=== PATIENT | female | born 1995 | race African-American/Black ===

== ENCOUNTER 2017-09-29 23:16 | Emergency (ER) | payer OTHER ==
[2017-09-30] MEDS ORDERED: Ketorolac Tromethamine 60 MG/2 ML VIAL ONE (00:08)
[2017-09-30] MEDS ORDERED: Ondansetron ODT 4 MG TAB ONE (00:08)
[2017-09-30] MEDS ORDERED: Metoclopramide HCl 10 MG TAB PO SCH (00:30)
== END 2017-09-30 01:32 | disposition home or self-care (01) ==
LOC: ERS 23:16
DX: R51 Headache (principal); E66.9 Obesity, unspecified
CPT/HCPCS: 96372; J1885; Q0162

== ENCOUNTER 2017-11-27 16:01 | Emergency (ER) | payer OTHER | END 2017-11-27 16:58 | disposition home or self-care (01) | LOC: ERS 16:01 | DX: B34.9 Viral infection, unspecified (principal); E66.9 Obesity, unspecified | CPT/HCPCS: 87081; 87430; 99283 ==

== ENCOUNTER 2018-05-23 13:33 | Emergency (ER) | payer OTHER ==
[2018-05-23 16:32] LABS: Bilirubin Negative (Negative); Blood, Urine Negative (Negative); Clarity CLEAR (Clear); Glucose, Urine (Dipstick) Negative (Negative); Leukocyte Negative (Negative); Nitrite Negative (Negative); Protein, Urine (Dipstick) Negative (Neg-Trace); pH, Urine 6.5 (5.0-9.0)
[2018-05-23 16:36] LABS: Pregnancy Test - Urine (BHCG) Negative (Negative); Pregu Control Background? CLEAR/WHITE (CLR/WHITE); Pregu Control Bar Appear? YES (CONTROL BAR)
--- NOTE | 2018-05-23 17:12 | RAD ---
CHEST TWO VIEWS: 05/23/18 HISTORY: Chest pain. FINDINGS: No comparison. The cardiac silhouette is magnified by projection. Pulmonary vasculature unremarkable. Mediastinum is midline. No lobar consolidation or evidence of pneumothorax. engine monitor leads overlie the chest . IMPRESSION: No active cardiopulmonary abnormalities are demonstrated. POS: [facility]
--- NOTE | 2018-05-24 15:15 | EKG ---
Test Reason : Blood Pressure : / mmHG Vent. Rate : 053 BPM Atrial Rate : 053 BPM P-R Int : 144 ms QRS Dur : 074 ms QT Int : 438 ms P-R-T Axes : 035 004 000 degrees QTc Int : [address] elevation, consider early repolarization, pericarditis, or injury Abnormal ECG Confirmed by MICAELA GUEVARA DO ([id number]), story editor JORGE MAGALLON ([id number]) on 05/24/2018 3:14:39 PM Referred By: Confirmed By:MICAELA GUEVARA DO
--- NOTE | 2018-05-25 13:54 | EKG ---
Test Reason : Blood Pressure : / mmHG Vent. Rate : 056 BPM Atrial Rate : 056 BPM P-R Int : 144 ms QRS Dur : 072 ms QT Int : 442 ms P-R-T Axes : 033 008 000 degrees QTc Int : 426 ms Sinus bradycardia Otherwise normal ECG Reconfirmed by MICAELA GUEVARA DO ([id number]), editor magazine JORGE MAGALLON ([id number]) on 05/25/2018 1:54:32 PM Referred By: Confirmed By:MICAELA GUEVARA DO
== END 2018-05-23 17:56 | disposition home or self-care (01) ==
LOC: ERS 13:33
DX: R07.89 Other chest pain (principal); E66.9 Obesity, unspecified
CPT/HCPCS: 71046; 81003; 81025; 93005

== ENCOUNTER 2018-07-06 12:39 | Emergency (ER) | payer OTHER ==
[2018-07-06] MEDS ORDERED: Dexamethasone 4 MG TAB ONE (13:01)
== END 2018-07-06 13:07 | disposition home or self-care (01) ==
LOC: ERS 12:39
DX: L23.5 Allergic contact dermatitis due to other chemical products (principal)
CPT/HCPCS: 99282; J8540

== ENCOUNTER 2019-01-29 19:08 | Emergency (ER) | payer OTHER | END 2019-01-29 20:11 | disposition left against medical advice (07) | LOC: ERS 19:08 | DX: Z53.21 Procedure and treatment not carried out due to patient leaving prior to being seen by health care provider (principal) ==

== ENCOUNTER 2019-01-30 01:11 | Emergency (ER) | payer OTHER ==
[2019-01-30 01:41] LABS: Bilirubin Negative (Negative); Blood, Urine Negative (Negative); Clarity CLEAR (Clear); Glucose, Urine (Dipstick) Negative (Negative); Leukocyte Negative (Negative); Nitrite Negative (Negative); Pregnancy Test - Urine (BHCG) POSITIVE (Negative); Pregu Control Background? CLEAR/WHITE (CLR/WHITE); Pregu Control Bar Appear? YES (CONTROL BAR); Protein, Urine (Dipstick) Negative (Neg-Trace); Specific Gravity 1.022 (1.002-1.036); Specific Gravity, Urine 1.022 (1.002-1.036)
[2019-01-30 02:23] LABS: #Basophils 0.1 thou/uL (0.0-0.2); #Eosinphils 0.2 thou/uL (0.0-0.7); #Lymphocytes 3.9 thou/uL (1.20-3.40); #Monocytes 0.9 thou/uL (0.11-0.59); #Neutrophils 7.9 thou/uL (1.40-6.50); %Basophils 0.8 % (0.0-1.0); %Eosinophils 1.2 % (0.0-10.0); %Monocytes 7.1 % (0.0-10.0); %Neutrophils 60.9 % (42.0-75.0); Hemoglobin 11.4 g/dL (12.0-16.0); Mean Corpuscular Volume 84.6 fL (78.0-98.0); Mean Platelet Volume 6.8 fL (7.4-10.4); Platelet Count 397 thou/uL (130-400); RBC Distribution Width 14.1 % (11.5-14.5); Red Blood Cell (RBC) Count 4.23 mill/uL (4.20-5.40)
[2019-01-30 02:44] LABS: ALT (SGPT) 11 U/L (8-55); AST (SGOT) 14 U/L (5-34); Albumin 3.6 g/dL (3.5-5.0); Alkaline Phosphatase 76 U/L (40-150); Anion Gap 10 mmol/L (10-20); BUN (Urea Nitrogen) 14 mg/dL (7.0-18.7); Bilirubin, Total 0.3 mg/dL (0.2-1.2); Calc. Creatinine Clearance 0 mL/min (70-130); Calcium 9.2 mg/dL (7.8-10.44); Carbon Dioxide 23 mmol/L (22-29); Chloride 108 mmol/L (98-107); Estimated GFR-MDRD Greater than 90; Globulin 3.3 g/dL (2.4-3.5); Glucose 93 mg/dL (70-105); Potassium 3.8 mmol/L (3.5-5.1); Protein, Total 6.9 g/dL (6.0-8.3); Sodium 137 mmol/L (136-145)
== END 2019-01-30 03:40 | disposition home or self-care (01) ==
LOC: ERS 01:11
DX: O21.9 Vomiting of pregnancy, unspecified (principal)
CPT/HCPCS: 36415; 80053; 81003; 81025; 85025; 99284

== ENCOUNTER 2019-07-08 21:41 | Day surgery (SDC) | payer OTHER ==
[2019-07-08] MEDS ORDERED: hydrALAZINE 20 MG/ML VIAL SLOW IVP PRN (22:31)
[2019-07-08 22:40] VITALS: BMI 48.0
[2019-07-08 23:19] LABS: Bilirubin Negative (Negative); Blood, Urine Negative (Negative); Clarity Clear (Clear); Glucose, Urine (Dipstick) Normal (Negative); Leukocyte 25 Leu/uL (Negative); Nitrite Negative (Negative); Protein, Urine (Dipstick) 20 mg/dL (Neg-Trace); RBC/HPF 0-3 HPF (0-3); Urobilinogen 3 mg/dL (Less than 2)
[2019-07-08 23:23] LABS: Bacteria/HPF 1+ HPF (None Seen)
[2019-07-08 23:34] LABS: FFN Internal QC Analyzer PASS (PASS); FFN Internal QC Cassette PASS (PASS); Fetal Fibronectin Negative (Negative)
--- NOTE | 2019-07-09 00:12 | SS ---
DATE OF ADMISSION: 07/08/2019 DATE OF DISCHARGE: 07/08/2019 REGULAR PHYSICIAN: Elver Cook. EVALUATING PHYSICIAN: [place] MD CHIEF COMPLAINT: Cramping at home. HISTORY OF PRESENT ILLNESS: Ms. Barton is a 23-year-old black G1, P0 with an estimated date of confinement of 10/05/2018, who presents complaining of a short episode of cramping at home. She denies associated vaginal bleeding or urinary symptoms. Her care has been at [facility] with a PA there and she states that it has been uncomplicated. PAST MEDICAL HISTORY: None. PAST SURGICAL HISTORY: Includes a cyst removed from her skull as a child. CURRENT MEDICATIONS: vitamins. ALLERGIES: NO KNOWN ALLERGIES. SOCIAL HISTORY: Denies tobacco, alcohol, or drug use. FAMILY HISTORY: Unremarkable. REVIEW OF SYSTEMS: Denies nausea, vomiting, fever, chills, ruptured membranes, or vaginal bleeding. PHYSICAL EXAMINATION: VITAL SIGNS: In triage, vital signs are stable. She is afebrile. GENERAL: She is pleasant, in no acute distress. ABDOMEN: Soft and gravid, nontender, and obese. heart rate tracing is stable. There are no decelerations. No uterine contractions were seen. LABORATORY DATA: fibronectin returns negative. Urinalysis is remarkable for ketones. Pelvic exam done after test results were obtained shows the cervix to be closed and long. ASSESSMENT: 1. 27 and 2/7th week intrauterine . 2. No evidence of labor. PLAN: The patient will be discharged home with labor precautions. She was told to keep herself well hydrated at home. She states that she has an appointment back at [facility] within the next 2 weeks. Job ID: [id number] [id number]
[2019-07-09] MEDS ORDERED: FLU VACC QS2019-20(6MOS UP)/PF 60 MCG/0.5 ML SYRINGE IM ONE (09:00)
== END 2019-07-08 23:50 | disposition home or self-care (01) ==
LOC: L&D/OP 21:41
PROVIDERS: ATTEND Obstetrics & Gynecology
DX: O99.89 Other specified diseases and conditions complicating pregnancy, childbirth and the puerperium (principal); R10.30 Lower abdominal pain, unspecified; Z3A.27 27 weeks gestation of pregnancy
CPT/HCPCS: 81003; 81015; 82731

== ENCOUNTER 2020-01-20 17:50 | Emergency (ER) | payer OTHER ==
[2020-01-20] MEDS ORDERED: diphenhydrAMINE 50 MG/ML VIAL ONE (18:21)
[2020-01-20] MEDS ORDERED: Metoclopramide HCl 10 MG/2 ML VIAL ONE (18:21)
[2020-01-20] MEDS ORDERED: Acetaminophen 500 MG TAB ONE (18:21)
[2020-01-20] MEDS ORDERED: Ketorolac Tromethamine 30 MG/ML VIAL ONE (18:21)
== END 2020-01-20 20:30 | disposition home or self-care (01) ==
LOC: ERS 17:50
DX: G43.909 Migraine, unspecified, not intractable, without status migrainosus (principal)
CPT/HCPCS: 96365; 96375; J1200; J1885; J2765

== ENCOUNTER 2022-02-06 22:49 | Emergency (ER) | payer BC, OTHER ==
[2022-02-06 23:26] LABS: #Basophils 0.1 thou/uL (0.0-0.2); #Eosinphils 0.2 thou/uL (0.0-0.7); #Lymphocytes 2.8 thou/uL (1.20-3.40); #Monocytes 0.8 thou/uL (0.11-0.59); #Neutrophils 7.7 thou/uL (1.40-6.50); %Basophils 0.6 % (0.0-1.0); %Eosinophils 1.4 % (0.0-10.0); %Lymphocytes 24.5 % (21.0-51.0); %Monocytes 6.5 % (0.0-10.0); %Neutrophils 66.9 % (42.0-75.0); Hemoglobin 11.4 g/dL (12.0-16.0); Mean Corpuscular HGB CONC 32.5 g/dL (32.0-36.0); Mean Corpuscular Hemoglobin 27.1 pg (27.0-31.0); Mean Corpuscular Volume 83.6 fL (78.0-98.0); Mean Platelet Volume 6.6 fL (7.4-10.4); Platelet Count 410 thou/uL (130-400); RBC Distribution Width 14.7 % (11.5-14.5); White Blood Cell (WBC) Count 11.5 thou/uL (4.8-10.8)
[2022-02-06 23:28] LABS: BHCG - Serum POSITIVE (NEGATIVE); Pregs Control Background? CLEAR/WHITE (CLR/WHITE); Pregs Control Bar Appear? YES (CONTROL BAR)
[2022-02-06 23:43] LABS: Bilirubin Negative (Negative); Blood, Urine Negative (Negative); Clarity Clear (Clear); Glucose, Urine (Dipstick) Normal (Negative); Ketone, Urine Negative (Negative); Leukocyte Negative Leu/uL (Negative); Nitrite Negative (Negative); Protein, Urine (Dipstick) Negative (Neg-Trace); Specific Gravity, Urine 1.029 (1.002-1.036); pH, Urine 6.5 (5.0-9.0)
== END 2022-02-07 00:48 | disposition home or self-care (01) ==
LOC: ERS 22:49
DX: O99.891 Other specified diseases and conditions complicating pregnancy (principal); R10.30 Lower abdominal pain, unspecified
CPT/HCPCS: 36415; 76856; 81003; 84702; 84703; 85025

== ENCOUNTER 2022-02-09 19:29 | Emergency (ER) | payer BC | END 2022-02-09 21:22 | disposition home or self-care (01) | LOC: ERS 19:29 | DX: O02.81 Inappropriate change in quantitative human chorionic gonadotropin (hCG) in early pregnancy (principal); O99.211 Obesity complicating pregnancy, first trimester; E66.01 Morbid (severe) obesity due to excess calories; Z3A.01 Less than 8 weeks gestation of pregnancy; Z68.45 Body mass index [BMI] 70 or greater, adult | CPT/HCPCS: 36415; 84702; 99282 ==